=== PATIENT | male | born 1975 ===

== ENCOUNTER 2016-08-01 19:56 | Emergency (ER) | payer OTHER ==
[2016-08-01] MEDS ORDERED: MOTRIN ONE (20:19)
[2016-08-01] MEDS ORDERED: MOTRIN PO ONE (20:22)
[2016-08-01] MEDS ORDERED: NORCO 5/325 ONE (21:35)
[2016-08-01] MEDS ORDERED: NORCO 5/325 PO ONE ×2 (21:38→21:50)
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
[2016-08-01] MEDS ORDERED: TORADOL IM ONE (23:20)
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
[2016-08-02] MEDS ORDERED: CATAPRES PO ONE (00:17)
[2016-08-02 00:31] VITALS: BP 160/105
== END 2016-08-02 00:32 | disposition home or self-care (01) ==
LOC: ED 19:56
DX: M25.561 Pain in right knee (principal); F17.200 Nicotine dependence, unspecified, uncomplicated; Z91.048 Other nonmedicinal substance allergy status
CPT/HCPCS: 29505; 73562; 96372; 99283; J1885